=== PATIENT | female | born 1945 | race Caucasian/White ===

== ENCOUNTER 2017-03-05 13:29 | Inpatient (IN) | payer MEDICARE, BC ==
[~2017-03-05] VITALS: Ht 152.4 cm; Wt 68.5 kg
[2017-03-05 13:40] VITALS: BP 145/96
--- NOTE | 2017-03-05 13:40 | NUR ---
ADMISSION NOTES/ PATIENT DIRECT ADMIT, BROUGHT BY AMBULANCE FROM [facility], 72Y/OLD FEMALE ON DX OF PSYCHOSIS NOS,AND ON 5150 HOLD. ACCORDING ON 5150 HOLD PATIENT PARANOID, DELUSIONAL, NOT TAKING MEDICATION. ON FACE TO FACE ASSESSMENT PATIENT A/O X2, CONFUSED, DEPRESS, FORGETFUL, NEED REDIRECTION. V/S TAKEN BP-145/96, P-99, R-19, O2-97 ROOM AIR, T-97.8. RESPIRATION EVEN, UNLABORED. SKIN ASSESSMENT DONE, PICTURE TAKEN, PT INCONTINENT, MRSA OF NARES SWAB TAKEN. PATIENT NEED ASSIST FOR AMBULATION USING WALKER. FALL PRECAUTION.PATIENT REFUSED SIGN PAPERWORK. DR. QUISPE, AND DR KHAN AWARE OF NEW PATIENT, AND NEW MEDICATION. CONTINUED MONITORING.
[2017-03-05] MEDS ORDERED: LORAZEPAM 0.5 MG TABLET PO PRN (14:00)
[2017-03-05] MEDS ORDERED: MAGNESIUM HYDROXIDE 30 ML UDC PO PRN (14:00)
[2017-03-05] MEDS ORDERED: MAG HYDROX/AL HYDROX/SIMETH 30 ML UDC PO PRN (14:00)
[2017-03-05] MEDS ORDERED: LEVO100T9 PO (14:07)
[2017-03-05] MEDS ORDERED: LATA2.5D7 EACHEYE (14:07)
[2017-03-05] MEDS ORDERED: SUCR1TAB PO (14:07)
[2017-03-05] MEDS ORDERED: POTA20TA83 PO (14:07)
[2017-03-05] MEDS ORDERED: AMLO5TAB2 PO (14:07)
[2017-03-05] MEDS ORDERED: DIVA500T7 PO (14:07)
[2017-03-05] MEDS ORDERED: ARIP5TAB4 PO (14:07)
[2017-03-05] MEDS ORDERED: TOPI50TA21 PO (14:07)
[2017-03-05 15:38] VITALS: BP 128/84
[2017-03-05] MEDS: ARIPIPRAZOLE 5 MG TABLET PO SCH (17:10)
[2017-03-05] MEDS: TOPIRAMATE 25 MG TABLET PO SCH (17:12)
--- NOTE | 2017-03-05 19:30 | NUR ---
GPS RN NOTE, RECEIVED PATIENT AWAKE AND IN BED, NO S/S COMPLAINTS OF PAIN AT THIS TIME. PATIENT IS DISPLAYING NO S/S OF APPARENT DISTRESS AT THIS TIME. PATIENT BREATHING IS UNLABORED WITH EQUAL RISE AND FALL OF THE CHEST. PATIENT IS ALERT AND ORIENTED X 1-2 ON ROOM AIR WITH A SPO2 97%. PATIENT COMPLIANT WITH MEDICATION, DEPRESSED, COOPERATIVE, CONFUSED AT TIMES, FORGETFUL, AND NEEDS REORIENTATION. PATIENT DENIES SUICIDE AND HOMICIDAL IDEATIONS AT THIS TIME. PATIENT ASSISTED WITH TURNING AND REPOSITIONING Q2HR AND PRN FOR COMFORT AND CIRCULATION. PATIENT HAS NO NEEDS AT THIS TIME. PATIENT EDUCATED ON THE USE OF THE CALL GONZALEZ. PATIENT BED SIDE RAILS UP X2 FOR SAFETY, BED IS LOCKED AND LOW WILL CONTINUE TO MONITOR AND MAINTAIN SAFETY.
[2017-03-05 20:00] VITALS: BP 128/70
[2017-03-05] MEDS: LATANOPROST EYE DROP 0.005% 2.5 ML BOTTLE EACHEYE SCH (21:24)
[2017-03-05] MEDS: SUCRALFATE 1 G TABLET PO SCH (21:24)
[2017-03-05] MEDS: MIRTAZAPINE 15 MG TABLET PO SCH (21:24)
[2017-03-06 06:52] LABS: ALBUMIN 3.4 g/dL (3.4-5.0); BILIRUBIN,TOTAL 0.6 mg/dL (0.2-1.0); CALCIUM, SERUM 8.8 mg/dL (8.5-10.1); CREATININE 0.8 mg/dL (0.6-1.3); POTASSIUM 3.8 mmol/L (3.5-5.1); TOTAL PROTEIN, SERUM 6.9 g/dL (6.4-8.2)
[2017-03-06 08:00] VITALS: BP_SYST 111; BP_SYST 124; BP_DIAS 82
[2017-03-06] MEDS: TOPIRAMATE 25 MG TABLET PO SCH ×2 (08:11→16:23)
[2017-03-06] MEDS: DIVALPROEX SODIUM 500 MG TABLET.DR PO SCH ×2 (08:11→16:23)
[2017-03-06] MEDS: POTASSIUM CHLORIDE 20 MEQ TAB.PRT.SR PO SCH (08:12)
[2017-03-06] MEDS: ARIPIPRAZOLE 5 MG TABLET PO SCH (08:12)
[2017-03-06] MEDS: AMLODIPINE BESYLATE 5 MG TABLET PO SCH (08:12)
[2017-03-06] MEDS: LEVOTHYROXINE SODIUM 100 MCG TABLET PO SCH (08:12)
[2017-03-06] MEDS: SUCRALFATE 1 G TABLET PO SCH ×4 (08:14→21:43)
[2017-03-06 08:27] VITALS: BP 124/82
[2017-03-06 15:26] VITALS: BP 111/82
--- NOTE | 2017-03-06 16:39 | NUR ---
Initial discharge plan: Pt. lives with her , Lonnie at [id number] [facility] [address] and would like to return upon discharge. CRISTIN will follow up with Lonnie to confirm that pt. is able to return. CRISTIN will follow up with MD and will help form a safe and proper discharge.
[2017-03-06 20:00] VITALS: BP 127/86
[2017-03-06] MEDS: LATANOPROST EYE DROP 0.005% 2.5 ML BOTTLE EACHEYE SCH (21:43)
[2017-03-06] MEDS: TEMAZEPAM 7.5 MG CAPSULE PO PRN (21:44)
[2017-03-06] MEDS: MIRTAZAPINE 15 MG TABLET PO SCH (21:44)
[2017-03-07 07:54] LABS: CHOLESTEROL 139 mg/dL (<200); HDL CHOLESTEROL 42 mg/dL (40-60); LDL 71 mg/dL (0-99); TRIGLYCERIDES 65 mg/dL (30-150)
[2017-03-07 08:00] VITALS: BP 119/88
[2017-03-07] MEDS: DIVALPROEX SODIUM 500 MG TABLET.DR PO SCH ×2 (08:13→16:31)
[2017-03-07] MEDS: TOPIRAMATE 25 MG TABLET PO SCH ×2 (08:13→16:31)
[2017-03-07] MEDS: SUCRALFATE 1 G TABLET PO SCH ×4 (08:13→20:54)
[2017-03-07] MEDS: LEVOTHYROXINE SODIUM 100 MCG TABLET PO SCH (08:13)
[2017-03-07] MEDS: ARIPIPRAZOLE 5 MG TABLET PO SCH (08:13)
[2017-03-07] MEDS: AMLODIPINE BESYLATE 5 MG TABLET PO SCH (08:13)
[2017-03-07] MEDS: POTASSIUM CHLORIDE 20 MEQ TAB.PRT.SR PO SCH (08:13)
[2017-03-07 15:53] VITALS: BP 121/76
[2017-03-07 20:00] VITALS: BP 145/96
--- NOTE | 2017-03-07 20:10 | NUR ---
RECEIVED PATIENT IN BED, ALERT AND ORIENTED X3, CALM AT THIS TIME, APPROPRIATE AFFECT, NO SOB, NO RESPIRATORY DISTRESS, DENIES ANY PAIN AT THIS TIME. ANSWERS QUESTIONS, COOPERATIVE, SEEN CONVERSING WITH ROOM MATE. KEPT SAFE AND COMFORTABLE, WILL CONTINUE TO MONITOR.
[2017-03-07] MEDS: MIRTAZAPINE 15 MG TABLET PO SCH (21:22)
[2017-03-07] MEDS: LATANOPROST EYE DROP 0.005% 2.5 ML BOTTLE EACHEYE SCH (21:23)
[2017-03-07 22:00] VITALS: BP 145/96
--- NOTE | 2017-03-08 06:43 | NUR ---
PATIENT IS ALERT AND AWAKE, NO SOB, NO DISTRESS, DENIES ANY PAIN AT THIS TIME, NO BEHAVIOR DISTURBANCE THROUGH THE NIGHT, COMPLIANT WITH MEDICATION, SLEPT FOR 8 HOURS, INDEPENDENT WITH TOILETING, ALL DUE MEDICATIONS GIVEN, KEPT SAFE AND COMFORTABLE.
[2017-03-08] MEDS: ARIPIPRAZOLE 5 MG TABLET PO SCH (07:59)
[2017-03-08] MEDS: POTASSIUM CHLORIDE 20 MEQ TAB.PRT.SR PO SCH (07:59)
[2017-03-08] MEDS: LEVOTHYROXINE SODIUM 100 MCG TABLET PO SCH (07:59)
[2017-03-08] MEDS: SUCRALFATE 1 G TABLET PO SCH ×4 (07:59→21:27)
[2017-03-08] MEDS: TOPIRAMATE 25 MG TABLET PO SCH ×2 (07:59→16:53)
[2017-03-08] MEDS: DIVALPROEX SODIUM 500 MG TABLET.DR PO SCH ×2 (08:00→16:53)
[2017-03-08] MEDS: AMLODIPINE BESYLATE 5 MG TABLET PO SCH (08:00)
[2017-03-08 08:03] VITALS: BP 128/80
[2017-03-08 20:11] VITALS: BP 113/80
[2017-03-08] MEDS: ACETAMINOPHEN 325 MG TABLET PO PRN (21:27)
[2017-03-08] MEDS: MIRTAZAPINE 15 MG TABLET PO SCH (21:27)
[2017-03-08] MEDS: LATANOPROST EYE DROP 0.005% 2.5 ML BOTTLE EACHEYE SCH (22:00)
--- NOTE | 2017-03-09 01:28 | NUR ---
Pt has been confused at times but oriented to place & compliant with her meds w/o any promptings.
[2017-03-09 08:00] VITALS: BP 128/84
[2017-03-09] MEDS: SUCRALFATE 1 G TABLET PO SCH ×4 (08:24→22:18)
[2017-03-09] MEDS: TOPIRAMATE 25 MG TABLET PO SCH ×2 (08:24→18:11)
[2017-03-09] MEDS: POTASSIUM CHLORIDE 20 MEQ TAB.PRT.SR PO SCH (08:24)
[2017-03-09] MEDS: LEVOTHYROXINE SODIUM 100 MCG TABLET PO SCH (08:25)
[2017-03-09] MEDS: AMLODIPINE BESYLATE 5 MG TABLET PO SCH (08:25)
[2017-03-09] MEDS: DIVALPROEX SODIUM 500 MG TABLET.DR PO SCH ×2 (08:25→18:11)
[2017-03-09] MEDS: ARIPIPRAZOLE 5 MG TABLET PO SCH (08:25)
[2017-03-09 16:00] VITALS: BP 125/73
[2017-03-09 20:00] VITALS: BP 143/77
[2017-03-09] MEDS: MIRTAZAPINE 15 MG TABLET PO SCH (22:18)
[2017-03-09] MEDS: LATANOPROST EYE DROP 0.005% 2.5 ML BOTTLE EACHEYE SCH (22:19)
[2017-03-09] MEDS: TEMAZEPAM 7.5 MG CAPSULE PO PRN (22:19)
[2017-03-10 08:00] VITALS: BP 143/98
[2017-03-10] MEDS: ARIPIPRAZOLE 5 MG TABLET PO SCH (08:09)
[2017-03-10] MEDS: TOPIRAMATE 25 MG TABLET PO SCH ×2 (08:09→17:29)
[2017-03-10] MEDS: AMLODIPINE BESYLATE 5 MG TABLET PO SCH (08:09)
[2017-03-10] MEDS: DIVALPROEX SODIUM 500 MG TABLET.DR PO SCH ×2 (08:09→17:30)
[2017-03-10] MEDS: POTASSIUM CHLORIDE 20 MEQ TAB.PRT.SR PO SCH (08:10)
[2017-03-10] MEDS: LEVOTHYROXINE SODIUM 100 MCG TABLET PO SCH (08:10)
[2017-03-10] MEDS: SUCRALFATE 1 G TABLET PO SCH ×4 (08:53→20:34)
--- NOTE | 2017-03-10 10:21 | NUR ---
SW spoke with pt's , Lonnie [phone] who agrees to forklift picker the patient.
[2017-03-10 16:00] VITALS: BP 114/57
[2017-03-10 20:49] VITALS: BP 110/78
[2017-03-10] MEDS: TEMAZEPAM 7.5 MG CAPSULE PO PRN (21:08)
[2017-03-10] MEDS: MIRTAZAPINE 15 MG TABLET PO SCH (21:11)
[2017-03-10] MEDS: LATANOPROST EYE DROP 0.005% 2.5 ML BOTTLE EACHEYE SCH (21:12)
[2017-03-11] MEDS: ARIPIPRAZOLE 5 MG TABLET PO SCH (08:20)
[2017-03-11] MEDS: TOPIRAMATE 25 MG TABLET PO SCH ×2 (08:20→16:04)
[2017-03-11] MEDS: POTASSIUM CHLORIDE 20 MEQ TAB.PRT.SR PO SCH (08:20)
[2017-03-11] MEDS: LEVOTHYROXINE SODIUM 100 MCG TABLET PO SCH (08:20)
[2017-03-11] MEDS: DIVALPROEX SODIUM 500 MG TABLET.DR PO SCH ×2 (08:20→16:04)
[2017-03-11] MEDS: SUCRALFATE 1 G TABLET PO SCH ×4 (08:20→21:00)
[2017-03-11] MEDS: AMLODIPINE BESYLATE 5 MG TABLET PO SCH (08:21)
[2017-03-11 08:24] VITALS: BP 107/72
[2017-03-11 15:33] VITALS: BP 122/83
[2017-03-11 19:50] VITALS: BP 109/65
[2017-03-11] MEDS: MIRTAZAPINE 15 MG TABLET PO SCH (22:23)
[2017-03-11] MEDS: LATANOPROST EYE DROP 0.005% 2.5 ML BOTTLE EACHEYE SCH (22:23)
[2017-03-11] MEDS: TEMAZEPAM 7.5 MG CAPSULE PO PRN (23:29)
--- NOTE | 2017-03-11 23:30 | NUR ---
GPS/RN NOTE: C/O INSOMNIA, TEMAZEPAM 7.5 MG CAP PO GIVEN.
--- NOTE | 2017-03-12 07:04 | NUR ---
GPS/RN NOTE: PATIENT SLEPT QUIETLY THE WHOLE NIGHT. NO UNTOWARD BEHAVIOR NOTED.
[2017-03-12] MEDS: ACETAMINOPHEN 325 MG TABLET PO PRN (07:11)
--- NOTE | 2017-03-12 07:12 | NUR ---
GPS/RN NOTE: C/O HEADACHE, TYLENOL 650 MG PO GIVEN.
[2017-03-12 08:00] VITALS: BP 150/76
[2017-03-12] MEDS: TOPIRAMATE 25 MG TABLET PO SCH ×2 (08:03→17:14)
[2017-03-12] MEDS: DIVALPROEX SODIUM 500 MG TABLET.DR PO SCH ×2 (08:04→17:14)
[2017-03-12] MEDS: POTASSIUM CHLORIDE 20 MEQ TAB.PRT.SR PO SCH (08:04)
[2017-03-12] MEDS: LEVOTHYROXINE SODIUM 100 MCG TABLET PO SCH (08:04)
[2017-03-12] MEDS: ARIPIPRAZOLE 5 MG TABLET PO SCH (08:04)
[2017-03-12] MEDS: AMLODIPINE BESYLATE 5 MG TABLET PO SCH (08:04)
[2017-03-12] MEDS: SUCRALFATE 1 G TABLET PO SCH ×4 (08:07→20:51)
[2017-03-12 16:17] VITALS: BP_SYST 114; BP_SYST 174; BP_DIAS 76
--- NOTE | 2017-03-12 19:37 | NUR ---
GPS/RN NOTE: PATIENT IN BED, AWAKE, ALERT, ORIENTED X3, NO ACUTE DISTRESS NOTED.
[2017-03-12 20:00] VITALS: BP 130/74
[2017-03-12] MEDS ORDERED: HALOPERIDOL LACTATE INJ 5 MG/ML VIAL IM ONE (20:00)
[2017-03-12] MEDS: LATANOPROST EYE DROP 0.005% 2.5 ML BOTTLE EACHEYE SCH (21:20)
[2017-03-12] MEDS: MIRTAZAPINE 15 MG TABLET PO SCH (21:25)
[2017-03-13 08:00] VITALS: BP 157/94
[2017-03-13] MEDS: TOPIRAMATE 25 MG TABLET PO SCH (08:27)
[2017-03-13] MEDS: ARIPIPRAZOLE 5 MG TABLET PO SCH (08:27)
[2017-03-13 08:28] VITALS: BP 157/94
[2017-03-13] MEDS: LEVOTHYROXINE SODIUM 100 MCG TABLET PO SCH (08:28)
[2017-03-13] MEDS: DIVALPROEX SODIUM 500 MG TABLET.DR PO SCH (08:28)
[2017-03-13] MEDS: POTASSIUM CHLORIDE 20 MEQ TAB.PRT.SR PO SCH (08:28)
[2017-03-13] MEDS: AMLODIPINE BESYLATE 5 MG TABLET PO SCH (08:28)
[2017-03-13] MEDS: SUCRALFATE 1 G TABLET PO SCH ×2 (08:29→12:07)
--- NOTE | 2017-03-13 08:52 | NUR ---
DR. HART GAVE AN ORDER TO D/C HOLD AND D/C HOME. PT. WITHOUT DISTRESS, DENIES SUICIDAL AND HOMICIDAL. TO FOLLOW UP WITH PSYCH AND MEDICAL DOCTORS.
--- NOTE | 2017-03-13 11:30 | NUR ---
JOSE LIM MADE AWARE OF THE DISCHARGE AND SAID OK FOR DISCHARGE AND WROTE A PRESCRIPTION.
--- NOTE | 2017-03-13 11:45 | NUR ---
PT. SIGNED THE DISCHARGE PAPERS, BELONGINGS READY AND PICTURES TAKEN FOR THE SKIN ISSUES.
--- NOTE | 2017-03-13 14:08 | NUR ---
Discharge note: Pt. discharge back home with , [place] at [address] [facility] [phone] . Lonnie promised to brass pickler the patient at 2:00PM. He agreed with the discharge plan. Pt. is calm and cooperative and denies suicidal/homicidal ideations. Pt. is provided a referral to [address], [place] [address] . Discharge paperwork has been signed and discharge instructions will be provided by the nurse upon discharge.
--- NOTE | 2017-03-13 14:25 | NUR ---
PT. LEFT THE UNIT WITH BELONGINGS AND PICKED BY MELVINA JENNIFER THE . PT. INSTRUCTED ON MEDS TO CONTINUE AT HOME AND VERBALIZES UNDERSTANDING AND ADVISED TO MAKE A FOLLOW UP WITH PSYCH AND MEDICAL DOCTORS AND AGREED. PT. LEFT THE UNIT VIA A WHEELCHAIR AND WHEELED BY STAFF TO THE [facility]. LEFT WITHOUT DISTRESS AND ON STABLE CONDITION. V/S TAKEN: BP 133/74, RR 18, IL 87, TEMP 97.8 AND OXYGEN SAT 98%. Addendum: 03/13/17 at 1449 by JUDY DYE RN PT. LEFT THE UNIT AT 1415
== END 2017-03-13 14:15 | disposition home or self-care (01) | DRG 885 ==
LOC: GPS 13:29
PROVIDERS: ADMIT Psychiatry & Neurology Psychiatry; ATTEND Family Medicine
DX: F31.64 Bipolar disorder, current episode mixed, severe, with psychotic features (principal); E03.9 Hypothyroidism, unspecified; I10 Essential (primary) hypertension; F29 Unspecified psychosis not due to a substance or known physiological condition; H40.9 Unspecified glaucoma; K44.9 Diaphragmatic hernia without obstruction or gangrene; Z73.6 Limitation of activities due to disability
CPT/HCPCS: 36415; 80053-TC; 80061-TC; 87081-TC